=== PATIENT | male | born 1990 | race Caucasian/White ===

== ENCOUNTER 2025-06-17 22:33 | Emergency (ER) | payer BC, SELFPAY ==
[2025-06-17 22:36] VITALS: BP 146/96
[2025-06-17 23:12] VITALS: BP 140/94
[2025-06-17 23:24] LABS: Hematocrit 42.1 % (39.0-52.0); Hemoglobin 14.6 g/dL (13.0-18.0); Mean Corp Hgb Conc. 34.7 g/dL (33.0-37.0); Mean Corpuscular Volume 87.0 fL (80.0-94.0); Nucleated Red Blood Cells % 0 % (-); Platelet Count 281 10^3/uL (130-400); Red Cell Dist. Width 11.7 % (11.5-14.5)
--- NOTE | 2025-06-17 23:28 | ED.GENMED ---
History of Present Illness
General
Chief Complaint: Dizziness
Source: patient
Time Seen by Provider: 06/17/25 23:08
History of Present Illness
History of Present Illness:
This patient is a 34-year-old male who says he just has been feeling 'off' since Friday, intermittently. He describes feeling momentarily dizzy when he stands up sometimes which feels like he might pass out, also described as lightheadedness, not
associated with a sense of spinning or movement. This resolves after few seconds. He also notes that he is had intermittent mild headaches particular at the end of the night, not sudden onset, not worst of life, and self resolving in a few
minutes. He is also having episodes where he feels like his heart is 'thumping', lasting a few minutes and then going away. He says that yesterday he felt fine. He felt well throughout the day today and in fact walked 18 holes of golf feeling
well. When he got home, he started to feel the 'thumping' and says that he 'freaked out' which prompted his visit here. He now feels 'relaxed' and is asymptomatic. In addition, he notes that his checked his blood pressure during the week and
it was noted to be 160/100. He has not checked his blood pressure in over a year and does not have a history of elevated blood pressure. He did have a short-lived episode where his neck felt sore on both sides, now fully resolved. He denies
associated trauma, visual changes, numbness, tingling, focal weakness. He also notes that sometimes he feels like he 'is not getting enough air in'.
Past History
Past History
ED Past Medical History: Asthma
ED Past Surgical History: Orthopedic
Social History
Tobacco: Non-smoker
Alcohol: None
Drug: None
Personal:
Living: with family
Phy Exam
Physical Exam
Physical Exam:
aao times three, in nad
PERRL, no photophobia, no nystagmus
neck supple
o/p clear
hrt rrr
lung cta
abd soft, nt, nd
extrem no c/c/e
skin warm well perfused
neuro intact, f to n nl, mtoor 5/5, sens intact, cn 2-21 intact
psych appropriate
Course
Orders/Labs/Results
Orders:
Orders
06/17/25 22:41
Electrocardiogram (*1) Urgent
Reason for Study: Chest Pain
EKG- Treatment ONCE
06/17/25 23:16
Complete Blood Count/With Diff Urgent
Comprehensive Metabolic Panel Urgent
Troponin I Urgent
Abnormal Lab Results
06/17/25
23:16
Absolute Monos (auto) 0.7 H 10^3/uL
(0.1-0.6)
Sodium 134 L mmol/L
(135-145)
BUN 24 H mg/dl
(9-20)
06/17/25 23:16
06/17/25 23:16
Vital Signs
Initial and Last Documented VS:
Initial Vital Signs
Temp Pulse Resp BP Pulse Ox
97.9 F 69 18 146/96 95
06/17/25 22:36 06/17/25 22:36 06/17/25 22:36 06/17/25 22:36 06/17/25 22:36
Last Documented Vital Signs
Temp Pulse Resp BP Pulse Ox
97.9 F 53 12 124/87 96
06/17/25 22:36 06/18/25 01:00 06/18/25 01:00 06/18/25 01:00 06/18/25 01:00
*Pulse Oximetry
SaO2: 95
Oxygen Mode of Delivery: Room air
Patient hypoxic: no
*Critical Care Note
Total Time (30-74mins, 75-104mins- exclusive of procedures): Not Applicable
Update Note
Update Note:
Patient presents to the Emergency Department with ___dizziness, etc.
Number and Complexity of Problems Addressed at the Encounter
� Chronic conditions affecting care:
� Acute Exacerbation and/or Progression of Chronic Illness:
� Differential Diagnosis includes: But not limited to electrolyte disorder, dehydration, hypertensive emergency/urgency, etc. etc.
Amount and/or Complexity of Data to be Reviewed and Analyzed
� I performed an independent evaluation of and my interpretation is:
EKG: Read by me, normal sinus rhythm, normal rate, normal axis, no acute ischemia
CT:
Xrays:
Laboratory Studies: Generally unremarkable
Other:
� Review of other/old records reveals:
� Clinical information was obtained by an independent historian:
� Prescriptions/Medications Considered but not given:
� Further testing considered but not performed:
Risk of Complications and/or Morbidity or Mortality of Patient Management
� Social determinants of health affecting care:
� Discussion with other providers (PCP, Hospitalists, Consultants, etc):
� Escalation of care including admission/observation vs risk of discharge considered: Workup and continued observation here unremarkable. Mild hypertension noted. Patient will be advised to follow-up with his PCP this week for
further management/assessment. Discussed with patient reasons to return to the ER. Neurovascularly intact, well-appearing. Highly doubt acute cardiovascular/neurological events given normal findings.
ED Attending Note
-
Portions of this chart may have been created with voice recognition software.� Occasional wrong word or��sound alike� substitutions may have occurred due to the inherent limitations of voice recognition software.
Discharge Plan
Departure
Patient Disposition: Home (Routine Discharge)
Date of Disposition: 06/18/25
Time of Disposition: 00:26
Patient with high blood pressure during this ER visit?: Yes
Condition: Good
Discharge Problem:
Dizziness
Instructions: Dizziness, BLOOD PRESSURE
Prescriptions:
No Action
albuterol sulfate 1 PUFF HFA aerosol inhaler
2 puff inhalation R [id number] PRN (Reason: SOB/chest tightness) Qty: 1 0RF
Referrals:
Teodoro Collazo MD [Family Provider, [facility]] - Follow up in 2-3 days
Activity Restrictions/Additional Instructions:
IF YOU DEVELOP PERSISTENT CHEST PAIN, SHORTNESS OF BREATH, NUMBNESS, WEAKNESS, CHANGE IN VISION, TROUBLE SWALLOWING, SEVERE HEADACHE, OR OTHER WORRISOME SIGNS, PLEASE RETURN TO THE ER IMMEDIATELY!
Interventions
Interventions:
*Risk Screen - Suicide Last Done: 06/17/25 22:36
*General Assessment Last Done: 06/17/25 22:36
*Neglect/Abuse Screening Last Done: 06/17/25 22:36
*ED- Fall Risk Assessment Last Done: 06/18/25 01:46
*ED COVID-19 Vaccine History Last Done: 06/18/25 01:46
*ED Influenza Vaccine History Last Done: 06/18/25 01:46
*Nursing Disposition Last Done: 06/18/25 01:46
ED- Neurological Assessment Last Done: 06/17/25 23:18
ED- Cardiac Assessment Last Done: 06/18/25 01:46
ED Swallowing Screen Last Done: 06/17/25 23:18
Discharge Date and Time
Discharge Date/Time: 06/18/25 01:47
Print Language: UKRAINIAN
[2025-06-17 23:55] LABS: ALT (SGPT) 28 U/L (0-50); AST (SGOT) 30 U/L (17-59); Albumin 4.6 g/dl (3.5-5.0); Alkaline Phosphatase 44 U/L (38-126); Blood Urea Nitrogen 24 mg/dl (9-20); Calcium 9.5 mg/dl (8.4-10.2); Carbon Dioxide 28 mmol/L (22-30); Chloride 100 mmol/L (98-107); Glucose 86 mg/dl (70-99); Potassium 4.1 mmol/L (3.5-5.1); Sodium 134 mmol/L (135-145); Total Protein 7.8 g/dl (6.3-8.2); eGFR > 60.00
[2025-06-17 23:56] LABS: Troponin I < 0.012 ng/ml
[2025-06-18] VITALS: BP 122/82
[2025-06-18 01:00] VITALS: BP 124/87
== END 2025-06-18 01:47 | disposition home or self-care (01) ==
LOC: EMR 22:33
PROVIDERS: Student in an Organized Health Care Education/Training Program; EMERGENCY PHYSICIAN Emergency Medicine; FAMILY PHYSICIAN Family Medicine
DX: R42 Dizziness and giddiness (principal); J45.909 Unspecified asthma, uncomplicated; I10 Essential (primary) hypertension
CPT/HCPCS: 99283; 80053; 84484; 85025; 93005